=== PATIENT | male | born 1955 | race Caucasian/White ===

== ENCOUNTER → 2016-10-01 | Day surgery (SDC) | payer OTHER ==
[~2016-10-01] MED LIST: ACETAMINOPHEN 1000 MG/100 ML VIAL IV ONE; BUPIVACAINE/EPINEPHRINE 0.25% 50 ML VIAL ONE; KETOROLAC TROMETHAMINE 30 MG/ML (IVP) VIAL IV PUSH ONE; LACTATED RINGER'S 1000 ML INJ 1,000 ML ONE; LIDOCAINE 1%/EPINEPHrine 1:100,000 SOLN 50 ML VIAL ONE; MEPERIDINE HCL 50 MG/ML VIAL ONE; MIDAZOLAM HCL 2 MG/2 ML VIAL ONE; ONDANSETRON HCL 4 MG/2 ML VIAL IV PUSH ONE; PROPOFOL 200 MG/20 ML AMP IV ONE; RESP: ALBUTEROL 2.5 MG/3 ML NEB (SCH) ONE; SODIUM CHLOR 0.9% 250 ML BAG IV ONE; VANCOMYCIN HCL 1000 MG VIAL ONE; ceFAZolin INJ 1,000 MG VIAL ONE
--- NOTE | 2016-10-04 17:26 | MP ---
cc: MARILOU STOKES M.D.,MANAV Cabrera MD DATE OF SURGERY 10/01/2016 PROCEDURE Reduction and repair of incarcerated umbilical hernia. PREOPERATIVE DIAGNOSIS Reducible umbilical hernia. POSTOPERATIVE DIAGNOSIS Incarcerated umbilical hernia. ANESTHESIA LMA. SURGEON Vineet Harris MD ESTIMATED BLOOD LOSS Less than 20 mL FLUIDS 150 mL crystalloid COMPLICATIONS None. DRAINS None SPECIMEN None. BEHAVIORAL THERAPY COORDINATOR Timmy Schmitz, CONSTRUCTION SITE CROSSING GUARD PROCEDURE IN DETAIL The patient was taken to the operating room and placed on the operating table in the supine position. after an adequate level of laryngeal mask anesthesia was instituted, the abdomen was shaved, prepped and draped. Time-out was taken confirming the correct patient, site and procedure to be performed. The CONSTRUCTION SITE CROSSING GUARD was present for the entirety of the operation. The CONSTRUCTION SITE CROSSING GUARD was necessary for appropriate retraction, dissection and visualization of the important anatomical structures during the procedure. CONSTRUCTION SITE CROSSING GUARD was directly assisting the operating surgeon involved in the technical aspects of the surgical case while the physical science technician was working the instrument table in passing instruments to the attending surgeon. Skin and subcutaneous tissue was infiltrated with local anesthetic and a transverse incision made below the umbilicus. Dissection was carried down to the hernia which was dissected off of the umbilical skin with a combination of sharp dissection and electrocautery. The hernia was comprised of fatty tissue which was not reducible when the patient was asleep. The fatty tissue was then dissected away from the almaraz of the defect which appeared to be approximately 2 cm in diameter. The fascia was opened slightly and the preperitoneal fatty material was able to be dissected and reduced into the abdominal cavity. When this had been accomplished, the patient was best felt to be repaired with mesh as he had chronic cough and sneezing. An 8-cm Ventralex ST mesh was selected and placed into the defect after the preperitoneal fat was dissected away from the anterior abdominal wall. The mesh was unfolded and fixed at multiple points with 0 Prolene suture. When this was completed, the fascia was closed in a longitudinal fashion with interrupted #1 Prolene suture. Local anesthetic was injected into the subcutaneous tissues and fascia. Care was taken to exclude the umbilical skin from the injections. When this was completed, the umbilical skin was reattached to the fascia with a 3-0 Vicryl suture. The wound was closed with interrupted 3-0 Vicryl suture and the skin closed with 5-0 PDS in a running subcuticular fashion. The wound was dressed with a Steri-Strip and 4x4 as well as Tegaderm. Abdominal binder was applied. The patient was then awakened and taken back to the recovery room in stable condition. Sponge, needle and instrument counts were reported to be correct. MD ANDREY Arana/ /2:16 PM /5:15 PM
== END | disposition home or self-care (01) ==
LOC: EDSEX 10:34 → ESDC 10:34
PROVIDERS: ATTEND Surgery Trauma Surgery
DX: K42.0 Umbilical hernia with obstruction, without gangrene (principal)
CPT/HCPCS: 00750; 49587; C1781; J0131; J0690; J1885; J2175; J2250; J2405; J3010; J3370; J7050; J7120; J7613